=== PATIENT | female | born 1955 | race Caucasian/White ===

== ENCOUNTER 2017-05-07 20:32 | Emergency (ER) | payer OTHER ==
[~2017-05-07] VITALS: Ht 162.6 cm; Wt 126.2 kg
[~2017-05-07 20:32] MED LIST: PERCOCET 5/31 TABLET PO; VALIUM5 MG PO
[2017-05-07 21:30] LABS: HEMATOCRIT 37.1 % (36.0-46.0); MCH 30.2 PG (29.0-34.0); MCHC 34.2 G/DL (30.0-36.0); MCV 88.3 FL (83-99); MEAN PLAT.VOLUME 9.4 uM^3 (9.5-12.4); PLATELET COUNT 213 K/uL (156-360); RBC DIS.WIDTH-CV 12.9 % (11.8-14.6); RBC DIS.WIDTH-SD 41.7 % (39-53); WHITE BLOOD COUNT 5.6 K/uL (4.1-10.2)
[2017-05-07 21:41] LABS: CHLORIDE 102 mEq/L (99-109); POTASSIUM 4.3 mEq/L (3.7-5.4); SODIUM 139 mEq/L (136-147)
[2017-05-07 21:42] LABS: GLUCOSE 192 mg/dL (70-99)
[2017-05-07 21:44] LABS: ANION GAP 10 MEQ/L (2-14)
[2017-05-07 21:46] LABS: GFR ESTIMATE (CALCULATED) > 59 mL/min/
[2017-05-07] MEDS ORDERED: NEBULIZER MC (21:46)
[2017-05-07 21:47] LABS: UREA NITROGEN (BUN) 17 mg/dL (9-23)
[2017-05-07 21:50] LABS: TROP-I INTERPRETATION NEGATIVE; TROPONIN-I < 0.01 ng/mL (0.0-0.30)
[2017-05-07] MEDS ORDERED: VENTOLIN HFA18 GM IH (21:59)
[2017-05-07] MEDS ORDERED: PROVENTIL,2.5 MG/3 M IH (21:59)
[2017-05-07] MEDS ORDERED: PREDNISONE20 MG PO (22:02)
[2017-05-07] MEDS ORDERED: ZITHROMAX250 MG PO (22:02)
[2017-05-07 23:45] VITALS: BP 176/74
== END 2017-05-08 00:53 | disposition home or self-care (01) ==
LOC: EME 20:32
DX: J45.901 Unspecified asthma with (acute) exacerbation (principal); E11.65 Type 2 diabetes mellitus with hyperglycemia; I10 Essential (primary) hypertension; Z88.6 Allergy status to analgesic agent
CPT/HCPCS: 71020; 80048; 84484; 85027; 93005; 94640; 94640 76; 99281; 99285; J2930; J7512